=== PATIENT | male | born 1955 | race Caucasian/White ===

== ENCOUNTER 2017-09-30 09:21 | Observation (INO) | payer OTHER ==
[~2017-09-30] VITALS: Ht 165.1 cm; Wt 68.0 kg
[~2017-09-30 09:21] MED LIST: LISINOPRIL20 MG PO
[2017-09-30 09:23] VITALS: Ht 165.1 cm; Wt 68.0 kg
[2017-09-30 09:51] LABS: BASOPHIL % 0.4 % (0-2); PLATELET COUNT 192 x10^3mcL (130-400); RED CELL DISTRIBUTION WIDTH 12.8 % (11.5-14.5)
[2017-09-30 10:08] LABS: CALCIUM 9.2 mg/dL (8.5-10.1); CARBON DIOXIDE 30.7 mmol/L (21-32); CHLORIDE SERUM 106 mmol/L (98-107); GFR1 > 60 mL/min; GLUCOSE SERUM 120 mg/dL (74-106); POTASSIUM SERUM 4.2 mmol/L (3.5-5.1); SODIUM SERUM 144 mmol/L (136-145)
[2017-09-30 10:15] LABS: ALBUMIN 3.9 g/dL (3.4-5.0); ALKALINE PHOSPHATASE 58 U/L (46-116); ALT/SGPT 25 U/L (16-63); AST/SGOT 14 U/L (15-37); BILIRUBIN TOTAL 1.26 mg/dL (0.20-1.00); CHOLESTEROL 201 mg/dL (<200); CHOLESTEROL/HDL RATIO 3.5; HDL CHOLESTEROL 58 mg/dL (40-60); LIPASE 97 IU/L (73-393); TOTAL PROTEIN, SERUM 7.2 g/dL (6.4-8.2); TRIGLYCERIDES 79 mg/dL (<150)
[2017-09-30 10:17] LABS: FREE T4 1.02 ng/dL (0.76-1.46); FREE THYROXINE INDEX 2.7 ug/dL (1.4-4.5); T3 TOTAL 1.23 ng/mL
[2017-09-30 10:36] LABS: microscopic required? NO
[2017-09-30] MEDS ORDERED: LISINOPRIL-HYDR1 TA3 PO (10:39)
[2017-09-30 11:20] LABS: urine erythrocyte NEGATIVE (NEGATIVE)
[2017-09-30 12:14] VITALS: BP 138/79
[2017-09-30 12:15] LABS: MAGNESIUM 1.9 mg/dL (1.8-2.4); PHOSPHOROUS 2.8 mg/dL (2.5-4.9)
[2017-09-30 14:04] VITALS: BP 141/80
[2017-09-30 18:03] VITALS: BP 112/88
[2017-10-01 05:19] VITALS: BP 140/78
[2017-10-01 06:34] LABS: CALCIUM 8.4 mg/dL (8.5-10.1); CARBON DIOXIDE 31.1 mmol/L (21-32); CHLORIDE SERUM 108 mmol/L (98-107); GFR1 > 60 mL/min; GLUCOSE SERUM 117 mg/dL (74-106); MAGNESIUM 1.8 mg/dL (1.8-2.4); PHOSPHOROUS 2.6 mg/dL (2.5-4.9); POTASSIUM SERUM 3.8 mmol/L (3.5-5.1); SODIUM SERUM 143 mmol/L (136-145)
[2017-10-01 07:03] LABS: BASOPHIL % 0.5 % (0-2); PLATELET COUNT 156 x10^3mcL (130-400); RED CELL DISTRIBUTION WIDTH 13.2 % (11.5-14.5)
[2017-10-01 13:04] VITALS: BP 140/78
== END 2017-10-01 14:18 | disposition home or self-care (01) | DRG 370 ==
LOC: ED 09:21 → DU 10:43
PROVIDERS: Family Medicine Sports Medicine; Specialist
DX: K22.6 Gastro-esophageal laceration-hemorrhage syndrome (principal); I10 Essential (primary) hypertension; E78.5 Hyperlipidemia, unspecified; E80.6 Other disorders of bilirubin metabolism; T67.5XXA Heat exhaustion, unspecified, initial encounter; Z68.24 Body mass index [BMI] 24.0-24.9, adult; Y93.53 Activity, golf; Y93.89 Activity, other specified; Y92.39 Other specified sports and athletic area as the place of occurrence of the external cause
CPT/HCPCS: 83880; 84439; G0378; G0480; J7030; Q0092